=== PATIENT | male | born 1980 | race Caucasian/White ===

== ENCOUNTER 2024-05-10 16:46 | Outpatient (CLI) | payer BC, SELFPAY ==
[2024-05-10 16:19] LABS: Basophils # 0.1 K/mm3 (0-0.2); Eosinophils # 0.2 K/mm3 (0.0-0.4); Eosinophils % 2.2 % (0.1-12.0); Hematocrit 46.3 % (42.0-52.0); Hemoglobin 14.8 g/dL (14.1-18.0); Lymphocytes # 2.4 K/mm3 (0.7-4.5); Lymphocytes % 36.4 % (10-50); Mean Platelet Volume 9.8 fl (7.4-10.4); Monocytes # 0.5 K/mm3 (0.1-1.0); Neutrophils # 3.6 K/mm3 (1.8-7.8); Neutrophils % 53.5 % (37.0-80.0); Platelet Count 376 K/mm3 (142-424); Red Blood Count 4.78 M/mm3 (4.60-6.20); Red Cell Distribution Width 13.6 % (11.5-17.5); White Blood Count 6.7 K/mm3 (4.8-10.8)
[2024-05-10 17:16] LABS: Alanine Aminotransferase 59 U/L (12-78); Albumin Level 4.5 g/dl (3.5-5.0); Albumin/Globulin Ratio 1.5 (1.1-1.8); Alkaline Phosphatase 71 U/L (38-126); Anion Gap 16.6 mEq/L (5-15); Aspartate Amino Transferase 30 U/L (17-59); Bilirubin,Total 0.4 mg/dl (0.2-1.3); Blood Urea Nitrogen 21 mg/dl (9-20); Calcium 9.3 mg/dl (8.4-10.2); Carbon Dioxide 22 mmol/L (22.0-30.0); Chloride 105 mmol/L (98-107); Chol/HDL Ratio 3.6 (1-3.5); Cholesterol 143 mg/dl (140-200); Estimated Glomerular Filt Rate 105 ml/min (>60); GFR (African American) 127 ML/MIN (>60); Glucose 87 mg/dl (74-100); HDL Cholesterol 40 mg/dl (40-60); Potassium 4.6 mmoL/L (3.5-5.1); Sodium 139 mmol/L (136-145); Total Protein,Serum 7.5 g/dl (6.3-8.2); Triglycerides 155 mg/dl (30-150); VLDL Cholesterol 31 mg/dL (0-40)
[2024-05-10 17:27] LABS: Direct LDL Cholesterol 63.07 mg/dL (100-129)
[2024-05-10 17:47] LABS: Thyroid Stimulating Hormone 2.98 uIU/mL (0.465-4.68)
== END 2024-05-10 23:59 | disposition home or self-care (01) ==
LOC: LAB.DROPOF 16:46
PROVIDERS: PCP Nurse Practitioner Family; Visit Provider Nurse Practitioner Family
DX: E78.5 Hyperlipidemia, unspecified (principal)
CPT/HCPCS: 80050; 80053; 80061; 84443; 85025

== ENCOUNTER 2025-08-01 11:07 | Outpatient (CLI) | payer BC, SELFPAY ==
[2025-08-01 21:22] LABS: Alanine Aminotransferase 67 U/L (12-78); Albumin Level 4.7 g/dl (3.5-5.0); Albumin/Globulin Ratio 1.6 (1.1-1.8); Alkaline Phosphatase 65 U/L (38-126); Anion Gap 13.4 mEq/L (5-15); Aspartate Amino Transferase 31 U/L (17-59); Bilirubin,Total 0.8 mg/dl (0.2-1.3); Blood Urea Nitrogen 16 mg/dl (9-20); Calcium 9.5 mg/dl (8.4-10.2); Carbon Dioxide 23 mmol/L (22.0-30.0); Chloride 105 mmol/L (98-107); Cholesterol 127 mg/dl (140-200); Creatinine,Serum 0.90 mg/dl (0.66-1.25); Estimated Glomerular Filt Rate 91 ml/min (>60); GFR (African American) 110 ML/MIN (>60); Globulin 3.0 g/dL (1.3-3.2); Glucose 88 mg/dl (74-100); HDL Cholesterol 42 mg/dl (40-60); Potassium 4.4 mmoL/L (3.5-5.1); Sodium 137 mmol/L (136-145); Total Protein,Serum 7.7 g/dl (6.3-8.2); Triglycerides 101 mg/dl (30-150)
[2025-08-01 22:11] LABS: Hepatitis C Ab Qual. W/ RFX NEGATIVE (Negative)
--- OUTSIDE RECORDS SUMMARY | 2025-08-02 10:38 | XMS_ITS | Clinical Summary ---
Author Organization [facility] Address [address] [place] [id number] Care Team Providers Care Deputy Director Of Nursing Name Role Phone Dimitry Tyson MD Primary Care Provider [phone] Allergies No known active allergies Medications lisinopril (PRINIVIL,ZESTR IL) 5 MG tablet Take 1 tablet by mouth Daily. 12/04/2022 Active levothyroxine (SYNTHROID, LEVOTHROID) 100 MCG tablet Take 1 tablet by mouth Every Morning. Active omeprazole (priLOSEC) 20 MG capsule Take 1 capsule by mouth As Needed (INDIGESTION ). Active multivitamin with minerals tablet tablet Take 1 tablet by mouth Daily. Active VITAMIN E BLEND PO Take by mouth. Active atorvastatin (LIPITOR) 20 MG tablet 02/19/2023 Active cyclobenzaprine (FLEXERIL) 10 MG tablet Take 1 tablet by mouth 3 (Three) Times a Day As Needed for Muscle Spasms. 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 Not on file Does Anyone Keep You from Co ntacting Others or Doint Things Outside the Home? Not on file 02/02/2024 Physical Sign of Abuse Present Not on file 0 02/02/2024 Housing Stability Answer Date Recorded Current Living Arrangements Not on file 01/15 Potentially Unsafe Housing Conditions Not on harry e 02/02/2024 Family and Community Support Answer Yogi e Recorded Help with Day-to-Day Activities Not on file 08/29/2023 Lonely or Isolated Not on file 08/29/2023 Employment Answer Date Recorded Do you want help finding or keeping work or a colton b? Not on file 08/29/2023 Disabilities Answer Date Recorded Concentrating, Remembering, or Making Decisions Difficulty Not on file 02/02/2024 Doing Errands Independently Difficulty Not on fi le 02/02/2024 Education Answer Date Recorded Help with school or training? Not on file Preferred Language Not on file 01/30/2024 Sex and Gender Information Value Date Recorded Sex Assigned at Not on file Legal Sex Male 9:48 AM EST Gender Identity Not on file Sexual Orientation Not on file Last Filed Vital Signs Vital Sign Reading Time Taken Comments Blood Pressure 122/72 02/06/2024 9:57 AM EDT Pulse 63 10/03/2023 11:04 AM EST Temperature 36.7 C (98 F) 02/06/2024 9:57 AM EDT Respiratory Rate 16 01/31/2023 3:00 PM EDT Oxygen Saturation 99% 10/03/2023 11:04 AM EST Inhaled Oxygen Concentration - - Weight 102 kg (225 lb) 02/06/2024 9:57 AM EDT Height 182.9 cm (6') 02/06/2024 9:57 AM EDT Body Mass Index 30.52 02/06/2024 9:57 AM EDT Plan of Treatment Health Maintenance Due Date Last Done Comments TDAP/TD VACCINES (1 - Tdap) 1998 ANNUAL PHYSICAL 01/22/2023 HEPATITIS C SCREENING 01/22/2023 COLOGUARD 2024 COLON CANCER SCREENING 5 YEA R SIGMOIDOSCOPY 2024 COLONOSCOPY 2024 COLORECTAL CANCER SCREENING [address]24 CT COLONOGRAPHY 2024 FECAL OCCULT BLOOD TEST 2024 FIT Testing (1 year) 2024 COVID-19 Vaccine (2024-2 6 season) 2025 10/23/2021, 01/11/2021, 11/20/2020 INFLUENZA VACCINE 08/17/2025 11/20/2018, 12/03/2017 Pneumococcal Vaccine 0-49 Aged Out No longer eligible based on patient's age to complete this topic Medical Devices Implanted Type Area Living Advisor Device Identifier Shelf Expiration Date Model / Serial / Lot Clip Ligat Vasc Horizon Theron Michelle Philip 6ct - [id number] Implanted:Qty: 2 on 01/31/2023 by Rahul Caban MD at [facility] Implant N/A: Spine Cervical [employer] [id number] / / NA Clip Ligat Vasc Horizon Ti Sm Yel 6ct - [id number] Implanted:Qty: 1 on 01/31/2023 by Rahul Caban MD at [facility] Implant N/A: Spine Cervical [employer] [id number] / / NA Dev Contrl Tiss Stratafix Spiral Mncryl Ud 3/0 Pls 30cm - [id number] Implanted:Qty: 1 on 01/31/2023 by Rahul Caban MD at [facility] Implant N/A: Spine Cervical [employer] DIV OF J AND J [id number] / / NA Hemost Abs Surgifoam Sz100 8x12 10mm - [id number] Implanted:Qty: 1 on 01/31/2023 by Rahul Caban MD at [facility] Implant N/A: Spine Cervical [employer] DIV OF J AND J 1974 / / NA Allogrft Bone Cornerstone L/Asr Fzd 6deg [id number] - [id number] - [id number] Implanted:Qty: 1 on 01/31/2023 by Rahul Caban MD at [facility] Implant N/A: Spine Cervical [employer] 10/01/2025 [id number] / [id number] / [id number] Plt Acp Zevo 1lvl 17mm Ns - [id number] Implanted:Qty: 1 on 01/31/2023 by Rahul Caban MD at [facility] Implant N/A: Spine Cervical [employer] [id number] / / NA Scrw St Zevo 2thrd S/Tap 3.5x13mm - [id number] Implanted:Qty: 4 on 01/31/2023 by Rahul Caban MD at [facility] Implant N/A: Spine Cervical [employer] [id number] / / NA Insurance BLUE [facility] PPO Care Teams Deputy Director Of Nursing Relationship Specialty Start Date End Date Dimitry Tyson MD PCP - General Family Medicine 01/16/23
[2025-08-03 05:14] LABS: Hepatitis B Surface Antigen Negative (Negative)
== END 2025-08-01 23:59 | disposition home or self-care (01) ==
LOC: LAB.DROPOF 08-02 10:14
PROVIDERS: PCP Family Medicine; Visit Provider Family Medicine
DX: E78.5 Hyperlipidemia, unspecified (principal); Z11.4 Encounter for screening for human immunodeficiency virus [HIV]; Z11.59 Encounter for screening for other viral diseases
CPT/HCPCS: 80053; 80061; 86803; 87340; 87389